=== PATIENT | male | born 1985 | race African-American/Black ===

== ENCOUNTER 2019-04-08 13:20 | Emergency (ER) | payer OTHER ==
[~2019-04-08] VITALS: Ht 190.5 cm; Wt 107.3 kg
[2019-04-08] MEDS ORDERED: ADDERALL10 MG PO (14:06)
[2019-04-08] MEDS ORDERED: ADVIL200 MG PO (14:07)
[2019-04-08] MEDS ORDERED: PYRIDIUM 100MG100 MG PO (14:17)
[2019-04-08 14:20] VITALS: PULSE 101
[2019-04-08 14:21] LABS: COLLECTION METHOD CLEAN CATCH
[2019-04-08] MEDS ORDERED: NORVASC 10MG10 MG PO (14:31)
[2019-04-08 14:33] LABS: ALBUMIN 5.1 gm/dL (3.5-5.0); C-REACTIVE PROTEIN 0.5 mg/dL (0.0-0.9); CALCIUM 9.8 mg/dL (8.4-10.2); CREATININE, serum 1.72 (0.66-1.25); POTASSIUM 4.1 mmol/L (3.4-5.0); TOTAL PROTEIN 8.9 gm/dL (6.4-8.2)
[2019-04-08 14:54] LABS: BASO # 0.1 (0.0-0.2); EOS # 0.1 (0.0-0.7); EOS % 1.8 % (0-4.0); GRAN # 2.1 (1.4-6.5); GRAN % 42.3 % (42.2-75.2); HEMATOCRIT 51.4 % (42.0-52.0); HEMOGLOBIN 17.3 g/dl (13.5-18.0); LYMPH # 2.3 (1.2-3.4); LYMPH % 46.2 % (20.0-51.0); MEAN CELL VOLUME 93 fl (80.0-100.0); MEAN CORPUSCULAR HEMOGLOBIN 31 pg (27.0-31.0); MEAN CORPUSCULAR HGB CONC 34 g/dl (33.0-37.0); MEAN PLATELET VOLUME 9.3 fl (7.4-10.4); MONO # 0.4 (0.1-0.6); MONO % 8.5 % (1.7-9.3); PLATELET COUNT 337 K/mm3 (130-400); RED BLOOD COUNT 5.54 M/mm3 (4.20-5.60); REDCELL DISTRIBUTION WIDTH-CV 11.5 % (11.5-14.5)
[2019-04-08 15:09] LABS: HYALINE CAST >12 /lpf; MUCOUS Present /lpf; PH 5 (5-8); SQUAMOUS EPITHELIAL 0-2 /hpf; URINE APPEARANCE Hazy; URINE BACTERIA None Seen /hpf; URINE BILIRUBIN Negative (NEGATIVE); URINE BLOOD 2+ (NEGATIVE); URINE COLOR Amber; URINE GLUCOSE Negative (NEGATIVE); URINE KETONE Negative (NEGATIVE); URINE LEUKOCYTE ESTERASE Negative (NEGATIVE); URINE NITRATE Positive (NEGATIVE); URINE PROTEIN(semi-quant) 2+ (NEGATIVE); URINE UROBILINOGEN >=4.0 mg/dL (NEGATIVE)
[2019-04-08] MEDS ORDERED: OMNICEF 300MG300 MG PO (15:47)
[2019-04-08] MEDS ORDERED: NORCO 325 MG-51 TAB PO (15:51)
[2019-04-08 16:46] VITALS: BP 138/101; TEMP 98.4
== END 2019-04-08 16:56 | disposition home or self-care (01) ==
LOC: COL.ER 13:20
PROVIDERS: Emergency Medicine
DX: N39.0 Urinary tract infection, site not specified (principal); E86.0 Dehydration; I10 Essential (primary) hypertension
CPT/HCPCS: J0696; J2270; J2405; J7030; Q9967

== ENCOUNTER 2019-12-15 04:53 | Emergency (ER) | payer OTHER ==
[~2019-12-15] VITALS: Ht 190.5 cm; Wt 125.0 kg
[~2019-12-15 04:53] MED LIST: ADDERALL10 MG PO; ADVIL200 MG PO; NORCO 325 MG-51 TAB PO; NORVASC 10MG10 MG PO; OMNICEF 300MG300 MG PO; PYRIDIUM 100MG100 MG PO
[2019-12-15 05:03] VITALS: TEMP 98.6
[2019-12-15] MEDS ORDERED: ULTRAM 50MG TAB50 MG PO (05:27)
[2019-12-15] MEDS ORDERED: MEDROL 4MG DOSPA4 MG PO (05:27)
[2019-12-15] MEDS ORDERED: FLEXERIL 1010 MG/TAB PO (05:27)
[2019-12-15 06:20] VITALS: BP 164/105; PULSE 86
== END 2019-12-15 06:20 | disposition home or self-care (01) ==
LOC: COL.ER 04:53
DX: M54.32 Sciatica, left side (principal); I10 Essential (primary) hypertension; Z79.1 Long term (current) use of non-steroidal anti-inflammatories (NSAID)
CPT/HCPCS: J7512

== ENCOUNTER 2020-02-03 07:07 | Emergency (ER) | payer BC, OTHER ==
[~2020-02-03] VITALS: Ht 190.5 cm; Wt 124.5 kg
[~2020-02-03 07:07] MED LIST changes: +FLEXERIL 1010 MG/TAB PO; +MEDROL 4MG DOSPA4 MG PO; +ULTRAM 50MG TAB50 MG PO
[2020-02-03 07:16] VITALS: TEMP 98.1
[2020-02-03] MEDS ORDERED: LEXAPRO 10MG10 MG PO (07:30)
[2020-02-03 07:59] LABS: BASO % 0.8 % (0.0-2.0); EOS # 0.1 (0.0-0.7); EOS % 3.4 % (0-4.0); GRAN # 1.9 (1.4-6.5); GRAN % 50.2 % (42.2-75.2); HEMATOCRIT 47.4 % (42.0-52.0); HEMOGLOBIN 16.1 g/dl (13.5-18.0); LYMPH # 1.4 (1.2-3.4); LYMPH % 36.1 % (20.0-51.0); MEAN CELL VOLUME 91 fl (80.0-100.0); MEAN CORPUSCULAR HEMOGLOBIN 31 pg (27.0-31.0); MEAN CORPUSCULAR HGB CONC 34 g/dl (33.0-37.0); MEAN PLATELET VOLUME 9.7 fl (7.4-10.4); MONO # 0.3 (0.1-0.6); PLATELET COUNT 295 K/mm3 (130-400); RED BLOOD COUNT 5.19 M/mm3 (4.20-5.60)
[2020-02-03 08:09] LABS: ALBUMIN 4.8 gm/dL (3.5-5.0); BILIRUBIN,TOTAL 0.8 mg/dL (0.0-1.0); CALCIUM 9.7 mg/dL (8.4-10.2); CREATININE, serum 1.29 (0.66-1.25); POTASSIUM 4.2 mmol/L (3.4-5.0); TOTAL PROTEIN 8.4 gm/dL (6.4-8.2)
[2020-02-03] MEDS ORDERED: HCTZ 25MG TAB25 MG PO (10:41)
[2020-02-03] MEDS ORDERED: NORVASC 10MG10 MG PO (10:41)
[2020-02-03 11:00] VITALS: BP 163/108; PULSE 80
== END 2020-02-03 11:00 | disposition home or self-care (01) ==
LOC: COL.ER 07:07
PROVIDERS: Family Medicine
DX: I10 Essential (primary) hypertension (principal); Z79.899 Other long term (current) drug therapy

== ENCOUNTER 2020-11-10 00:52 | Emergency (ER) | payer BC, OTHER ==
[~2020-11-10] VITALS: Ht 190.5 cm; Wt 111.4 kg
[~2020-11-10 00:52] MED LIST changes: +HCTZ 25MG TAB25 MG PO; +LEXAPRO 10MG10 MG PO
[2020-11-10 00:59] VITALS: TEMP 97.2
[2020-11-10 01:15] LABS: BASO % 0.9 % (0.0-2.0); EOS % 0.9 % (0-4.0); GRAN % 45.7 % (42.2-75.2); HEMATOCRIT 49.6 % (42.0-52.0); HEMOGLOBIN 16.7 g/dl (13.5-18.0); LYMPH # 1.9 (1.2-3.4); LYMPH % 44.9 % (20.0-51.0); MEAN CELL VOLUME 90 fl (80.0-100.0); MEAN CORPUSCULAR HEMOGLOBIN 30 pg (27.0-31.0); MEAN CORPUSCULAR HGB CONC 34 g/dl (33.0-37.0); MEAN PLATELET VOLUME 9.3 fl (7.4-10.4); MONO # 0.3 (0.1-0.6); MONO % 7.4 % (1.7-9.3); PLATELET COUNT 456 K/mm3 (130-400); REDCELL DISTRIBUTION WIDTH-CV 11.9 % (11.5-14.5)
[2020-11-10 01:26] LABS: ALANINE AMINOTRANSFERASE 192 U/L (4-49); ALKALINE PHOSPHATASE 73 U/L (50-136); ANION GAP 10 mmol/L (7-16); AST,SGOT 395 U/L (15-37); BILIRUBIN,TOTAL 0.9 mg/dL (0.0-1.0); BLOOD UREA NITROGEN 21 mg/dL (9-20); CALCIUM 8.4 mg/dL (8.4-10.2); CARBON DIOXIDE 25 mmol/L (22-30); CHLORIDE 100 mmol/L (98-107); CREATININE, serum 1.28 (0.66-1.25); GLUCOSE 137 mg/dL (74-106); POTASSIUM 3.4 mmol/L (3.4-5.0); SODIUM 135 mmol/L (137-145); TOTAL PROTEIN 7.6 gm/dL (6.4-8.2)
[2020-11-10 01:40] LABS: TROPONIN-I < 0.012 ng/mL (0.000-0.035)
[2020-11-10] MEDS ORDERED: ZOFRAN ODT4 MG PO (02:22)
[2020-11-10] MEDS ORDERED: PROTONIX 40MG T40 MG PO (02:22)
[2020-11-10 03:15] VITALS: BP 145/89; PULSE 84
== END 2020-11-10 03:15 | disposition home or self-care (01) ==
LOC: COL.ER 00:52
PROVIDERS: Emergency Medicine
DX: K29.70 Gastritis, unspecified, without bleeding (principal); I10 Essential (primary) hypertension; R11.0 Nausea; F32.9 Major depressive disorder, single episode, unspecified; F41.9 Anxiety disorder, unspecified; F17.290 Nicotine dependence, other tobacco product, uncomplicated; Z79.899 Other long term (current) drug therapy
CPT/HCPCS: C9113; J2060; J7030

== ENCOUNTER 2021-02-16 05:00 | Emergency (ER) | payer OTHER, BC ==
[~2021-02-16] VITALS: Ht 190.5 cm; Wt 113.6 kg
[~2021-02-16 05:00] MED LIST changes: +PROTONIX 40MG T40 MG PO; +ZOFRAN ODT4 MG PO
[2021-02-16 05:32] VITALS: TEMP 98.1
[2021-02-16 06:18] LABS: BASO % 0.5 % (0.0-2.0); EOS % 0.8 % (0-4.0); GRAN # 2.3 K/mm3 (1.4-6.5); GRAN % 57.9 % (42.2-75.2); HEMATOCRIT 41.1 % (42.0-52.0); HEMOGLOBIN 14.3 g/dl (13.5-18.0); LYMPH # 1.3 K/mm3 (1.2-3.4); LYMPH % 33.5 % (20.0-51.0); MEAN CELL VOLUME 89 fl (80.0-100.0); MEAN CORPUSCULAR HEMOGLOBIN 31 pg (27.0-31.0); MEAN CORPUSCULAR HGB CONC 35 g/dl (33.0-37.0); MEAN PLATELET VOLUME 9.7 fl (7.4-10.4); MONO # 0.3 K/mm3 (0.1-0.6); PLATELET COUNT 592 K/mm3 (130-400); REDCELL DISTRIBUTION WIDTH-CV 12.4 % (11.5-14.5)
[2021-02-16 06:40] LABS: ALBUMIN 3.9 gm/dL (3.5-5.0); BILIRUBIN,TOTAL 2.4 mg/dL (0.2-1.2); CALCIUM 9.1 mg/dL (8.4-10.2); CREATININE, serum 1.78 mg/dL (0.72-1.25)
[2021-02-16 06:42] LABS: POTASSIUM 2.4 mmol/L (3.5-4.5)
[2021-02-16 06:50] LABS: TROPONIN-I 0.037 ng/mL (0.00-0.033)
[2021-02-16 07:00] LABS: MAGNESIUM 1.6 mg/dL (1.6-2.6)
[2021-02-16 07:05] LABS: ALCOHOL(ethanol),MEDICAL < 10 mg/dL (0-10)
[2021-02-16 09:48] LABS: CALCIUM 8.6 mg/dL (8.4-10.2); CREATININE, serum 1.45 mg/dL (0.72-1.25); POTASSIUM 3.1 mmol/L (3.5-4.5)
[2021-02-16] MEDS ORDERED: K-DUR 10 MEQ T10 MEQ PO (10:49)
[2021-02-16 11:10] VITALS: BP 140/88; PULSE 88
== END 2021-02-16 11:14 | disposition home or self-care (01) ==
LOC: COL.ER 05:00
PROVIDERS: Emergency Medicine; Family Medicine
DX: F10.239 Alcohol dependence with withdrawal, unspecified (principal); I10 Essential (primary) hypertension; K29.70 Gastritis, unspecified, without bleeding; E86.0 Dehydration; R74.8 Abnormal levels of other serum enzymes; Y90.0 Blood alcohol level of less than 20 mg/100 ml; Z20.822 Contact with and (suspected) exposure to COVID-19; Z79.899 Other long term (current) drug therapy
CPT/HCPCS: J3480; J7120